=== PATIENT | male | born 1985 | race Caucasian/White ===

== ENCOUNTER 2018-07-10 22:57 | Emergency (ER) | payer MEDICAID ==
[2018-07-11 00:09] VITALS: RESP 16; O2SAT 98
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
[2018-07-11 06:11] VITALS: BP 122/86; PULSE 66; TEMP 98.3
== END 2018-07-11 06:11 | disposition home or self-care (01) ==
LOC: H.ER 22:57
DX: L72.0 Epidermal cyst (principal)

== ENCOUNTER 2018-07-13 01:43 | Emergency (ER) | payer MEDICAID ==
[2018-07-13 01:54] VITALS: BP 137/95; PULSE 94; TEMP 97.7; O2SAT 98
[2018-07-13 01:55] VITALS: BMI 30.4
[2018-07-13 02:02] VITALS: RESP 18
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
== END 2018-07-13 02:35 | disposition home or self-care (01) ==
LOC: H.ER 01:43
DX: H92.09 Otalgia, unspecified ear (principal)